=== PATIENT | male | born 1950 | race Two or more races ===

== ENCOUNTER 2020-04-14 06:08 | Day surgery (SDC) | payer BC ==
[2020-04-13 10:26] VITALS: BMI 30.4
[2020-04-14] MEDS ORDERED: MIDAZOLAM HCL 2 MG/2 ML SINGLE DOSE VIAL ONE (08:00)
[2020-04-14] MEDS ORDERED: DEXAMETHASONE SOD PHOSPHATE/PF 10 MG/ML SDV ONE (08:04)
[2020-04-14] MEDS ORDERED: LIDOCAINE HCL 0.5%, 5 MG/ML (50mL SDVIAL) ONE (08:05)
[2020-04-14] MEDS ORDERED: LIDOCAINE HCL/PF 1% SDV 5ML VIAL ONE (08:09)
--- NOTE | 2020-04-14 08:13 | HP ---
Admitting History and Physical - Admission Chief Complaint: Low back and Right History of Present Illness: The patient complains of right low back and leg pain. History Source: Patient - Smoking History Smoking history: Never smoked Have you smoked in the past 12 months: No Home Medications - Allergies Allergies/Adverse Reactions: Allergies Allergy/AdvReac Type Severity Reaction Status Date / Time No Known Allergies Allergy Verified 04/14/20 06:31 - Home Medications Home Medications: Ambulatory Orders Amlodipine Besylate/Benazepril [Lotrel 5-20 mg Capsule] 1 each PO DAILY 04/13/20 Aspirin Coated [Ecotrin -] 81 mg PO DAILY 04/13/20 Canagliflozin [Invokana] 300 mg PO DAILY 04/13/20 Linagliptin/Metformin HCl [Jentadueto 2.5 mg-500 mg Tab] 1 each PO BID 04/13/20 Nebivolol [Bystolic -] 5 mg PO DAILY 04/13/20 Prasugrel HCl [Effient] 5 mg PO DAILY 04/13/20 Pravastatin Sodium [Pravachol (Nf)] 20 mg PO HS 04/13/20 Physical Examination Vital Signs: Vital Signs Temperature 97.4 F L 04/14/20 06:35 Pulse Rate 79 04/14/20 06:35 Respiratory Rate 16 04/14/20 06:35 Blood Pressure 151/71 04/14/20 06:35 O2 Sat by Pulse Oximetry (%) 98 04/14/20 06:35 Musculoskeletal: Yes: Back Pain Neurological: Yes: Other (slr positive) Imaging - Results MRI: Image Reviewed Assessment/Plan The patients pain is secondary to Right L4 Lumbar radiculopathy due due to degenerative disk disease/ disk herniation. 1. I will perform Right L3 and L4 Transforaminal epidural steroid Injection under Fluoroscopic Guidance. 2. Follow up in 2 weeks.
[2020-04-14 11:44] VITALS: BP 131/71; PULSE 68; TEMP 97.3
--- NOTE | 2020-04-14 12:38 | PROC ---
Procedure Note Procedure: Preoperative Diagnosis: Lumbar Radiculopathy Left Postoperative Diagnosis: Same Procedure Performed: Fluoroscopic Guided Lumbar Transforaminal Epidural Steroid injeciton at Left L3- L4 Anesthesia: Local Procedure: After the risks and benefits were explained, informed consent was obtained. The patient was then taken to the procedure room and positioned prone on the procedure table. Time out was performed. The region overlying the Left L3 L4 neural foramens were identified using fluoroscopy. The skin was prepped and draped in the usual sterile fashion. The skin and soft tissues were anesthetized using 1% lidocaine. The neural foramens were identified with the fluoroscopic beam directed in a right oblique direction. 2 22 gauge 3.5 inch spinal needles were then introduced into the appropriate neural foramens using intermittent fluoroscopic guidance using AP, oblique and lateral views as indicated. Needle placement was then confirmed with the injection of Omnipaque 240. Epidural flow was noted and the nerve root was outlined. No vascular uptake was noted. Next, a mixture 1.5 cc of dexamethasone and Normal saline followed by 0.5 cc of 1% lidocaine was then injected around the Left L3 L4 spinal nerves. The patient tolerated the procedure well and there were no complications. The patient was taken to the post procedure recovery area in good condition. Vital signs remained stable before, during, and after the procedure. The patient was given oral and written follow-up instructions. The patient was given a follow up appointment with me in the near future. Ghulam Gill DO
== END 2020-04-14 09:55 | disposition home or self-care (01) ==
LOC: JASU-SURG 06:08
PROVIDERS: ATTEND Pain Medicine Pain Medicine
PROC: 3E0R33Z Introduction of Anti-inflammatory into Spinal Canal, Percutaneous Approach (ICD-10-PCS; 2020-04-14)
PROC: 3E0R3BZ Introduction of Anesthetic Agent into Spinal Canal, Percutaneous Approach (ICD-10-PCS; principal; 2020-04-14 08:00)
DX: M54.16 Radiculopathy, lumbar region (principal); E11.9 Type 2 diabetes mellitus without complications; I10 Essential (primary) hypertension
CPT/HCPCS: 76000-TC-FY

== ENCOUNTER 2020-04-24 05:05 | Day surgery (SDC) | payer BC ==
[2020-04-23 11:41] VITALS: BMI 30.4
[2020-04-24] MEDS ORDERED: DEXAMETHASONE SOD PHOSPHATE/PF 10 MG/ML SDV ONE (07:20)
[2020-04-24 07:23] VITALS: TEMP 97.6
--- NOTE | 2020-04-24 09:05 | HP ---
Admitting History and Physical - Admission Chief Complaint: Low back and r> L Leg pain. ' History of Present Illness: PT complains of right low back and right leg pain radiating to calf History Source: Patient - Smoking History Smoking history: Never smoked Have you smoked in the past 12 months: No If you are a former smoker, when did you quit?: HOOKAH Home Medications - Allergies Allergies/Adverse Reactions: Allergies Allergy/AdvReac Type Severity Reaction Status Date / Time No Known Allergies Allergy Verified 04/16/20 08:17 - Home Medications Home Medications: Ambulatory Orders Amlodipine Besylate/Benazepril [Lotrel 5-20 mg Capsule] 1 each PO DAILY 04/13/20 Aspirin Coated [Ecotrin -] 81 mg PO DAILY 04/13/20 Canagliflozin [Invokana] 300 mg PO DAILY 04/13/20 Linagliptin/Metformin HCl [Jentadueto 2.5 mg-500 mg Tab] 1 each PO BID 04/13/20 Nebivolol [Bystolic -] 5 mg PO DAILY 04/13/20 Prasugrel HCl [Effient] 5 mg PO DAILY 04/13/20 Pravastatin Sodium [Pravachol (Nf)] 20 mg PO HS 04/13/20 Physical Examination Vital Signs: Vital Signs Temperature 97.6 F 04/24/20 07:23 Pulse Rate 76 04/24/20 07:23 Respiratory Rate 20 04/24/20 07:23 Blood Pressure 120/65 04/24/20 07:23 O2 Sat by Pulse Oximetry (%) 97 04/24/20 07:23 Constitutional: Yes: Well Nourished, No Distress, Calm Eyes: Yes: Conjunctiva Clear, EOM Intact HENT: Yes: Atraumatic, Normocephalic Neck: Yes: Trachea Midline Cardiovascular: Yes: Regular Rate and Rhythm Respiratory: Yes: Regular Musculoskeletal: Yes: Back Pain Imaging - Results MRI: Report Reviewed, Image Reviewed Assessment/Plan The patients low back and Leg pains are secondary to lumbar radiculopathy. 1. I will perform right L4 and L5 TFESI.
[2020-04-24] MEDS ORDERED: LIDOCAINE HCL/PF 1% SDV 5ML VIAL ONE (09:44)
[2020-04-24] MEDS ORDERED: IOHEXOL 180 MG/1 ML ML IJ ONE ×2 (09:55)
[2020-04-24] MEDS ORDERED: BUPIVACAINE HCL/PF 0.5% (5MG/ML) 10 ML VIAL NR ONE (09:55)
[2020-04-24] MEDS ORDERED: LIDOCAINE HCL 1% PRESERVATIVE FREE - 30ML VIAL NR ONE ×2 (09:55)
[2020-04-24] MEDS ORDERED: DEXAMETHASONE SOD PHOSPHATE 10 MG/1 ML VIAL IM ONE (09:55)
[2020-04-24 10:42] VITALS: PULSE 67
[2020-04-24 11:14] VITALS: BP 126/54
--- NOTE | 2020-05-04 08:52 | PROC ---
Procedure Note Procedure: Pre procedure Diagnosis: Lumbar radiculopathy Post Procedure Diagnosis: same Anasthesia: local Procedure Performed: Right L4 and L5 transforaminal epidural steroid injection After the risks and benefits were explained, informed consent was obtained. The patient was then taken to the procedure room and positioned prone on the procedure table. Time out was performed. The region overlying the Right L4 and L5 neural foramens were identified using fluoroscopy. The skin was prepped and draped in the usual sterile fashion. The skin and soft tissues were anesthetized using 1% lidocaine. The neural foramens were identified with the fluoroscopic beam directed in a right oblique direction. 2 22 gauge 3.5 inch spinal needles were then introduced into the appropriate neural foramens using intermittent fluoroscopic guidance using AP, oblique and lateral views as indicated. Needle placement was then confirmed with the injection of Omnipaque 240. Epidural flow was noted and the nerve root was outlined. No vascular uptake was noted. Next, a mixture 1.5 cc of dexamethaso ne and Normal saline followed by 0.5 cc of 1% lidocaine was then injected around the Right L4 and L5 spinal nerves. The patient tolerated the procedure well and there were no complications. The pa tient was taken to the post procedure recovery area in good condition. Vital signs remained stable before, during, and after the procedure. The patient was given oral and written follow-up instructions. The patient was given a follow up appointment with me in the near future. Ghulam Gill DO
== END 2020-04-24 11:15 | disposition home or self-care (01) ==
LOC: JASU-SURG 05:05
PROVIDERS: ATTEND Pain Medicine Pain Medicine
PROC: 3E0R33Z Introduction of Anti-inflammatory into Spinal Canal, Percutaneous Approach (ICD-10-PCS; 2020-04-24)
PROC: 3E0R3BZ Introduction of Anesthetic Agent into Spinal Canal, Percutaneous Approach (ICD-10-PCS; principal; 2020-04-24 09:00)
DX: M54.16 Radiculopathy, lumbar region (principal)
CPT/HCPCS: 76000-TC-FY; J1100

== ENCOUNTER 2022-03-18 04:16 | Day surgery (SDC) | payer OTHER, BC ==
[2022-03-17 08:50] VITALS: BMI 31.1
[2022-03-18] MEDS ORDERED: LIDOCAINE HCL/PF 1% SDV 5ML VIAL ONE (07:26)
[2022-03-18] MEDS ORDERED: BUPIVACAINE HCL/PF 0.5% (5MG/ML) 10 ML VIAL ONE ×2 (07:26→11:09)
[2022-03-18] MEDS ORDERED: BUPIVACAINE HCL/PF 0.75% 10 ML VIAL ONE (11:10)
[2022-03-18] MEDS ORDERED: BUPIVACAINE HCL/PF 0.5% (5MG/ML) 10 ML VIAL IJ ONE (11:23)
[2022-03-18 11:54] VITALS: BP 126/76; PULSE 67; TEMP 98.7
== END 2022-03-18 12:05 | disposition home or self-care (01) ==
LOC: JASU-SURG 04:16
PROVIDERS: ATTEND Pain Medicine Pain Medicine
PROC: 3E0T33Z Introduction of Anti-inflammatory into Peripheral Nerves and Plexi, Percutaneous Approach (ICD-10-PCS; 2022-03-18)
PROC: 3E0T3BZ Introduction of Anesthetic Agent into Peripheral Nerves and Plexi, Percutaneous Approach (ICD-10-PCS; principal; 2022-03-18 10:00)
DX: M47.812 Spondylosis without myelopathy or radiculopathy, cervical region (principal)
CPT/HCPCS: 76000-TC-FY

== ENCOUNTER 2022-04-12 04:13 | Day surgery (SDC) | payer OTHER, BC ==
[2022-04-07 09:08] VITALS: BMI 32.2
[2022-04-12] MEDS ORDERED: LIDOCAINE HCL/PF 1% SDV 5ML VIAL ONE (08:08)
[2022-04-12] MEDS ORDERED: BUPIVACAINE HCL/PF 0.25% (2.5MG/ML) 10 ML VIAL ONE (08:19)
[2022-04-12] MEDS ORDERED: BUPIVACAINE HCL/PF 0.75% 10 ML VIAL ONE (08:19)
[2022-04-12] MEDS ORDERED: BUPIVACAINE HCL/PF 2.5 MG/ML - 30 ML VIAL IJ ONE (13:38)
[2022-04-12 15:08] VITALS: BP 103/61; PULSE 71; TEMP 97.9
== END 2022-04-12 14:20 | disposition home or self-care (01) ==
LOC: JASU-SURG 04:13
PROVIDERS: ATTEND Pain Medicine Pain Medicine
PROC: 3E0T33Z Introduction of Anti-inflammatory into Peripheral Nerves and Plexi, Percutaneous Approach (ICD-10-PCS; 2022-04-12)
PROC: 3E0T3BZ Introduction of Anesthetic Agent into Peripheral Nerves and Plexi, Percutaneous Approach (ICD-10-PCS; principal; 2022-04-12 12:00)
DX: M47.812 Spondylosis without myelopathy or radiculopathy, cervical region (principal)
CPT/HCPCS: 76000-TC-FY

== ENCOUNTER 2022-06-07 04:20 | Day surgery (SDC) | payer OTHER, BC ==
[2022-06-06 16:11] VITALS: BMI 31.3
[2022-06-07] MEDS ORDERED: LIDOCAINE HCL/PF 1% SDV 5ML VIAL ONE (07:12)
[2022-06-07] MEDS ORDERED: DEXAMETHASONE SOD PHOSPHATE 10 MG/1 ML VIAL ONE (07:12)
[2022-06-07 09:55] VITALS: RESP 18
[2022-06-07] MEDS ORDERED: DEXAMETHASONE SOD PHOSPHATE 10 MG/1 ML VIAL IVPUSH ONE ×2 (11:12→11:20)
[2022-06-07] MEDS ORDERED: LIDOCAINE HCL 1% PRESERVATIVE FREE - 30ML VIAL IJ ONE ×2 (11:12)
[2022-06-07] MEDS ORDERED: IOHEXOL 180 MG/1 ML ML IJ ONE (11:14)
[2022-06-07 14:19] VITALS: BP 127/61; PULSE 70; TEMP 98.9
== END 2022-06-07 11:50 | disposition home or self-care (01) ==
LOC: JASU-SURG 04:20
PROVIDERS: ATTEND Pain Medicine Pain Medicine
PROC: 3E0R33Z Introduction of Anti-inflammatory into Spinal Canal, Percutaneous Approach (ICD-10-PCS; 2022-06-07)
PROC: 3E0R3BZ Introduction of Anesthetic Agent into Spinal Canal, Percutaneous Approach (ICD-10-PCS; principal; 2022-06-07 10:30)
DX: M54.16 Radiculopathy, lumbar region (principal)
CPT/HCPCS: 76000-TC-FY; J1100